=== PATIENT | female | born 1970 | race Hispanic/Latino ===

== ENCOUNTER 2020-09-01 17:56 | Inpatient (IN) | payer SELFPAY ==
[~2020-09-01 17:56] MED LIST: Iopamidol-370 76% 500 ML 1 ML ONE
[2020-09-01] MEDS ORDERED: Ondansetron PF 4 MG/2 ML Vial ONE (19:55)
[2020-09-01] MEDS ORDERED: niCARdipine 20MG In NaCl 20 MG/200 ML BAG ONE (19:55)
[2020-09-01] MEDS ORDERED: Morphine 4 MG/ML VIAL ONE ×2 (19:55→21:08)
[2020-09-01 20:00] LABS: #Lymphocytes 1.1 thou/uL (1.20-3.40); #Monocytes 0.2 thou/uL (0.11-0.59); #Neutrophils 11.2 thou/uL (1.40-6.50); %Basophils 0.2 % (0.0-1.0); %Eosinophils 0.2 % (0.0-10.0); %Lymphocytes 8.6 % (21.0-51.0); %Monocytes 1.9 % (0.0-10.0); %Neutrophils 89.2 % (42.0-75.0); Hemoglobin 14.6 g/dL (12.0-16.0); Mean Corpuscular HGB CONC 33.2 g/dL (32.0-36.0); Mean Corpuscular Hemoglobin 30.8 pg (27.0-31.0); Mean Corpuscular Volume 92.9 fL (78.0-98.0); Mean Platelet Volume 8.3 fL (7.4-10.4); Platelet Count 223 thou/uL (130-400); Red Blood Cell (RBC) Count 4.75 mill/uL (4.20-5.40); White Blood Cell (WBC) Count 12.6 thou/uL (4.8-10.8)
[2020-09-01] MEDS ORDERED: Promethazine 25 MG TAB PO PRN (20:16)
[2020-09-01] MEDS ORDERED: Labetalol HCl 100 MG/20 ML VIAL SLOW IVP PRN (20:16)
[2020-09-01] MEDS ORDERED: hydrALAZINE 20 MG/ML VIAL SLOW IVP PRN (20:16)
[2020-09-01] MEDS ORDERED: Promethazine HCl 25 MG/ML VIAL IM PRN (20:16)
[2020-09-01 20:26] LABS: ALT (SGPT) 98 U/L (8-55); AST (SGOT) 65 U/L (5-34); Albumin 4.6 g/dL (3.5-5.0); Alkaline Phosphatase 92 U/L (40-110); Anion Gap 17 mmol/L (10-20); BUN (Urea Nitrogen) 12 mg/dL (7.0-18.7); Bilirubin, Total 0.4 mg/dL (0.2-1.2); Calc. Creatinine Clearance 0 mL/min (70-130); Calcium 9.3 mg/dL (7.8-10.44); Carbon Dioxide 22 mmol/L (22-29); Chloride 104 mmol/L (98-107); Globulin 4.7 g/dL (2.4-3.5); Glucose 193 mg/dL (70-105); Potassium 3.6 mmol/L (3.5-5.1); Protein, Total 9.3 g/dL (6.0-8.3); Sodium 139 mmol/L (136-145)
[2020-09-01] MEDS ORDERED: Dextrose 50% Abboject 50 ML SYRINGE SLOW IVP PRN (20:30)
[2020-09-01] MEDS ORDERED: Aminocaproic Acid 5 GM in Sodium Chloride 0.9% 250 ML 250 ML IV SCH (20:30)
[2020-09-01] MEDS ORDERED: HumaLOG 300 UNITS/3 ML VIAL SC PRN ×2 (20:30)
[2020-09-01] MEDS ORDERED: Dextrose 5% in Water 1,000 ML IV PRN (20:30)
[2020-09-01 20:43] LABS: Prothrombin Time 13.2 sec (12.0-14.7)
[2020-09-01 20:44] LABS: PTT 33.5 sec (22.9-36.1)
[2020-09-01 21:13] LABS: Hemoglobin A1c 5.5 % (4.0-6.0)
[2020-09-01 21:48] LABS: SARS-CoV-2 NAA Rapid Test Not Detected (NotDetected)
[2020-09-01] MEDS: niMODipine 30 MG CAP PO SCH (22:27)
[2020-09-01] MEDS: Famotidine/PF 20 mg/2ml Vial SLOW IVP SCH (22:55)
[2020-09-01] MEDS: Sodium Chloride 0.9% 1,000 ML IV SCH (22:57)
[2020-09-01 23:24] LABS: HBCM Index 0.14 S/CO (0-0.79); HBSAg Index 0.18 S/CO (0-0.99); Hep A IgM AB Non-Reactive (NonReactive); Hep A IgM S/CO 0.19 S/CO (0-0.79); Hep B Surf Ag Non-Reactive S/CO (NonReactive); Hepatitis B Core IgM Abs Non-Reactive (NonReactive)
[2020-09-02] MEDS: Aminocaproic Acid 5 GM in Sodium Chloride 0.9% 250 ML 250 ML IV SCH ×2 (00:15→06:23)
[2020-09-02] MEDS: Morphine 2 MG/ML VIAL SLOW IVP PRN ×3 (00:16→19:40)
[2020-09-02] MEDS: Ondansetron PF 4 MG/2 ML Vial IVP PRN ×2 (00:23→09:08)
[2020-09-02 01:10] LABS: Hep C IgG Ab Reflex HepC Qnt (NonReactive)
[2020-09-02] MEDS: niMODipine 30 MG CAP PO SCH ×6 (01:10→22:28)
[2020-09-02] MEDS ORDERED: Heparin 10,000 UNITS/ 10 ML VIAL ONE (08:35)
[2020-09-02] MEDS: Famotidine/PF 20 mg/2ml Vial SLOW IVP SCH ×2 (09:08→22:27)
[2020-09-02] MEDS ORDERED: Fentanyl 100 MCG/2 ML VIAL ONE (09:39)
[2020-09-02] MEDS ORDERED: Ondansetron PF 4 MG/2 ML Vial ONE (10:08)
[2020-09-02] MEDS ORDERED: Lidocaine 1% PF 5 ML VIAL ONE (10:08)
[2020-09-02] MEDS ORDERED: Dexamethasone 20 MG/5 ML VIAL ONE (10:08)
[2020-09-02] MEDS ORDERED: PHENYLEPHRINE-NS 100 MCG/ML 10 ML SYRINGE ONE (10:08)
[2020-09-02] MEDS ORDERED: Rocuronium Bromide 10 MG/ML (10ML VIAL) ONE (10:08)
[2020-09-02] MEDS ORDERED: PROPOFOL 200 MG/20 ML VIAL ONE (10:08)
[2020-09-02] MEDS ORDERED: SUGAMMADEX SODIUM 500 MG/5 ML VIAL ONE (11:01)
[2020-09-02] MEDS ORDERED: Iopamidol 370 76% 100 ML VIAL ONE (12:44)
[2020-09-02] MEDS: Sodium Chloride 0.9% 1,000 ML IV SCH ×2 (14:52→20:30)
[2020-09-03] MEDS: Morphine 2 MG/ML VIAL SLOW IVP PRN ×2 (03:40→11:53)
[2020-09-03] MEDS: niMODipine 30 MG CAP PO SCH ×6 (06:13→21:27)
[2020-09-03] MEDS: Sodium Chloride 0.9% 1,000 ML IV SCH (08:20)
[2020-09-03] MEDS: Famotidine/PF 20 mg/2ml Vial SLOW IVP SCH (08:20)
[2020-09-03] MEDS: HYDROcodone/Acetaminophen 7.5/325 mg Tablet PO PRN ×2 (08:26→20:24)
[2020-09-03] MEDS ORDERED: Famotidine 20 MG TAB PO SCH (09:00)
[2020-09-03 11:40] VITALS: BMI 35.7
[2020-09-03] MEDS: Ondansetron PF 4 MG/2 ML Vial IVP PRN (17:39)
[2020-09-03] MEDS: Famotidine 20 MG TAB PO SCH (20:24)
[2020-09-04] MEDS: niMODipine 30 MG CAP PO SCH ×6 (02:07→20:21)
[2020-09-04] MEDS: HYDROcodone/Acetaminophen 7.5/325 mg Tablet PO PRN ×3 (02:09→20:32)
[2020-09-04] MEDS: Sodium Chloride 0.9% 1,000 ML IV SCH ×3 (02:13→23:18)
[2020-09-04] MEDS: Famotidine 20 MG TAB PO SCH ×2 (09:38→20:21)
[2020-09-04] MEDS: Morphine 2 MG/ML VIAL SLOW IVP PRN ×2 (11:46→17:28)
[2020-09-05] MEDS: niMODipine 30 MG CAP PO SCH ×6 (01:47→21:21)
[2020-09-05] MEDS: HYDROcodone/Acetaminophen 7.5/325 mg Tablet PO PRN ×4 (01:53→19:29)
[2020-09-05] MEDS: Famotidine 20 MG TAB PO SCH ×2 (08:28→21:21)
[2020-09-05 09:37] LABS: Hep C PCR-Quant HCV Not Detected IU/mL (.)
[2020-09-05] MEDS: Sodium Chloride 0.9% 1,000 ML IV SCH (12:41)
[2020-09-05] MEDS: Morphine 2 MG/ML VIAL SLOW IVP PRN ×2 (13:18→21:20)
[2020-09-05] MEDS ORDERED: Fentanyl 100 MCG/2 ML VIAL ONE (16:47)
[2020-09-06] MEDS: niMODipine 30 MG CAP PO SCH ×6 (02:07→20:33)
[2020-09-06] MEDS: HYDROcodone/Acetaminophen 7.5/325 mg Tablet PO PRN ×6 (02:08→23:24)
[2020-09-06 07:05] LABS: Anion Gap 12 mmol/L (10-20); BUN (Urea Nitrogen) 8 mg/dL (7.0-18.7); Calc. Creatinine Clearance 117 mL/min (70-130); Calcium 8.6 mg/dL (7.8-10.44); Carbon Dioxide 24 mmol/L (22-29); Chloride 105 mmol/L (98-107); Glucose 146 mg/dL (70-105); Potassium 3.2 mmol/L (3.5-5.1); Sodium 138 mmol/L (136-145)
[2020-09-06] MEDS ORDERED: Potassium Chloride 20 MEQ TAB PO SCH (07:30)
[2020-09-06] MEDS: Famotidine 20 MG TAB PO SCH ×2 (08:51→20:32)
[2020-09-06] MEDS ORDERED: Milk Of Magnesia 30 ML UDCUP PO PRN (16:29)
[2020-09-06] MEDS ORDERED: Bisacodyl 10 MG SUPP PR PRN (16:29)
[2020-09-06] MEDS ORDERED: Fleet Enema 133 ML BOT PR PRN (16:30)
[2020-09-06] MEDS: Docusate 100 MG CAP PO PRN (16:59)
[2020-09-07] MEDS: niMODipine 30 MG CAP PO SCH ×6 (00:53→21:10)
[2020-09-07] MEDS: HYDROcodone/Acetaminophen 7.5/325 mg Tablet PO PRN ×5 (03:32→21:10)
[2020-09-07 05:25] LABS: Anion Gap 13 mmol/L (10-20); BUN (Urea Nitrogen) 8 mg/dL (7.0-18.7); Calc. Creatinine Clearance 115 mL/min (70-130); Calcium 8.9 mg/dL (7.8-10.44); Carbon Dioxide 25 mmol/L (22-29); Chloride 103 mmol/L (98-107); Glucose 121 mg/dL (70-105); Potassium 3.8 mmol/L (3.5-5.1); Sodium 137 mmol/L (136-145)
[2020-09-07] MEDS: Docusate 100 MG CAP PO PRN (08:29)
[2020-09-07] MEDS: Famotidine 20 MG TAB PO SCH ×2 (08:29→21:09)
[2020-09-08] MEDS: niMODipine 30 MG CAP PO SCH ×3 (01:46→08:59)
[2020-09-08] MEDS: HYDROcodone/Acetaminophen 7.5/325 mg Tablet PO PRN ×3 (01:46→09:18)
[2020-09-08 07:50] VITALS: BP 141/74; TEMP 98.4
[2020-09-08] MEDS: Famotidine 20 MG TAB PO SCH (08:59)
== END 2020-09-08 11:11 | disposition home or self-care (01) | DRG 25 ==
LOC: ERS 17:56 → CCU 20:15 → 2SE 09-05 18:23
PROVIDERS: ADMIT Neurological Surgery; ATTEND Neurological Surgery
PROC: 03L Upper Arteries, Occlusion (ICD-10-PCS; principal; 2020-09-02)
DX: I67.1 Cerebral aneurysm, nonruptured (principal); I60.9 Nontraumatic subarachnoid hemorrhage, unspecified; I10 Essential (primary) hypertension; Z20.822 Contact with and (suspected) exposure to COVID-19; R73.9 Hyperglycemia, unspecified; R74.01 Elevation of levels of liver transaminase levels; D72.829 Elevated white blood cell count, unspecified
CPT/HCPCS: 36415; 36416; 61624; 70450; 70496; 76705; 80048; 80053; 80074; 83036; 84484; 85025; 85610; 85730; 87522; 93005; 94760; 96365; 96366; 96375; 96376; C1887; J1100; J1644; J2270; J2405; J2550; J2704; J3010; J7050; Q9967; S0017; S0028; U0002